=== PATIENT | male | born 1965 ===

== ENCOUNTER → 2017-08-16 13:16 | Outpatient (CLI) | payer BC ==
[2017-08-16 15:26] LABS: BILIRUBIN - DIRECT 0.13 mg/dL (0.00-0.30); BILIRUBIN - INDIRECT 0.27 mg/dL (0.00-1.00); BILIRUBIN - TOTAL 0.4 mg/dL (0.2-1.3); PROTEIN - SERUM 8.9 g/dL (6.4-8.2)
== END | disposition home or self-care (01) ==
LOC: D.LABREF 13:16
PROVIDERS: Student in an Organized Health Care Education/Training Program
DX: R94.5 Abnormal results of liver function studies (principal)